=== PATIENT | male | born 1970 | race Caucasian/White ===

== ENCOUNTER 2020-12-10 13:42 | Emergency (ER) | payer MEDICAID ==
[~2020-12-10] VITALS: Ht 172.7 cm; Wt 98.0 kg
[2020-12-10] MEDS ORDERED: IBUPROFEN 600MG TABLET PO ONE (15:15)
[2020-12-10 15:22] VITALS: BP 123/76
[2020-12-10] MEDS ORDERED: IBUP-2029 MT (16:05)
== END 2020-12-10 16:25 | disposition home or self-care (01) ==
LOC: ER 13:42
DX: M79.662 Pain in left lower leg (principal); Z88.0 Allergy status to penicillin
CPT/HCPCS: 73560; 93971; 99284; Z7610